=== PATIENT | male | born 1955 | race Caucasian/White ===

== ENCOUNTER 2017-07-31 10:40 | Inpatient (IN) | payer OTHER ==
[2017-07-31 11:44] VITALS: BMI 42.8
--- NOTE | 2017-07-31 12:49 | HP ---
CIWA Score - CIWA Score Nausea/Vomitin-Mild Nausea/No Vomiting Muscle Tremors: 4-Moderate,w/Arms Extend Anxiety: 4-Mod. Anxious/Guarded Agitation: 4-Moderately Restless Paroxysmal Sweats: 1-Minimal Palms Moist Orientation: 0-Oriented Tacttile Disturbances: 1-Very Mild Itch/Numbness Auditory Disturbances: 0-None Visual Disturbances: 0-None Headache: 0-None Present CIWA-Ar Total Score: 15 Admission ROS BHS - HPI Chief Complaint: alcohol withdrawal sx Allergies/Adverse Reactions: Allergies Allergy/AdvReac Type Severity Reaction Status Date / Time No Known Allergies Allergy Verified 07/31/17 12:45 History of Present Illness: 62 years old male with long history of alcohol nicotine dependence has chronic feet swell, ambulate with cane and wheelchair right foot fracture 2006 surgically repaired is admitted to detox Exam Limitations: No Limitations - Ebola screening Have you traveled outside of the country in the last 21 days: No Have you had contact with anyone from an Ebola affected area: No Have you been sick,other than usual withdrawal symptoms: No Do you have a fever: No - Review of Systems Constitutional: Changes in sleep, Weight Stable EENT: reports: No Symptoms Reported Respiratory: reports: SOB with Exertion Cardiac: reports: No Symptoms Reported GI: reports: Nausea, Poor Fluid Intake, Abdominal cramping : reports: No Symptoms Reported Musculoskeletal: reports: Joint Pain (right foot), Muscle Pain (legs), Muscle Weakness (right leg), Neck Pain Integumentary: reports: Change in Color (both legs vascular insufficient) Neuro: reports: Tremors Endocrine: reports: No Symptoms Reported Hematology: reports: No Symptoms Reported Psychiatric: reports: Judgement Intact, Orientated x3, Anxious Other Systems: Reviewed and Negative Patient History - Patient Medical History Hx Anemia: No Hx Asthma: No Hx Chronic Obstructive Pulmonary Disease (COPD): No Hx Cancer: No Hx Cardiac Disorders: No Hx Congestive Heart Failure: No Hx Hypertension: No Hx Hypercholesterolemia: No Hx Pacemaker: No HX Cerebrovascular Accident: No Hx Seizures: No Hx Dementia: No Hx Diabetes: No Hx Gastrointestinal Disorders: No Hx Liver Disease: No Hx Genitourinary Disorders: No Hx Sexually Transmitted Disorders: No Hx Renal Disease (ESRD): No Hx Thyroid Disease: No Hx Human Immunodeficiency Virus (HIV): No Hx Hepatitis C: No Hx Depression: Yes Hx Suicide Attempt: No Hx Bipolar Disorder: No Hx Schizophrenia: No - Patient Surgical History Past Surgical History: Yes Hx Orthopedic Surgery: Yes (2005 right foot) Anesthesia Reaction: No - PPD History Documented Results: Negative w/o proof Implanted On Prior [facility] Admission?: No PPD to be Administered?: Yes - Smoking Cessation Smoking history: Current every day smoker Have you smoked in the past 12 months: Yes Aproximately how many cigarettes per day: 5 Cigars Per Day: 0 Hx Chewing Tobacco Use: No Initiated information on smoking cessation: Yes 'Breaking Loose' booklet given: 07/31/17 - Substance & Tx. History Hx Alcohol Use: Yes Hx Substance Use: Yes Substance Use Type: Alcohol, Cocaine Hx Substance Use Treatment: Yes (2015 [place]) Family Disease History - Family Disease History Family Disease History: Other: Father (), Mother () Admission Physical Exam BHS - Vital Signs Vital Signs: Vital Signs - 24 hr 07/31/17 11:42 Temperature 97.8 F Pulse Rate 101 H Respiratory 20 Rate Blood Pressure 159/92 - Physical General Appearance: Yes: Appropriately Dressed, Mild Distress, Obese, Tremorous , Irritable, Sweating, Anxious HEENTM: Yes: Hearing grossly Normal, Normocephalic, Normal Voice Respiratory: Yes: Chest Non-Tender, Lungs Clear, Normal Breath Sounds, No Respiratory Distress, No Accessory Muscle Use Neck: Yes: Supple, Trachea in good position Breast: Yes: Breasts Symetrical, No Discharge Cardiology: Yes: Regular Rhythm, S1, S2, Tachycardia Abdominal: Yes: Normal Bowel Sounds, Non Tender, Flat Genitourinary: Yes: Within Normal Limits Back: Yes: Normal Inspection Musculoskeletal: Yes: Gait Steady (cane), Back pain, Joint swelling (feet), Muscle Pain, Muscle weakness (right leg) Extremities: Yes: Non-Tender, Tremors Neurological: Yes: Fully Oriented, Alert, Motor Strength 5/5 (cane), Normal Response, Depressed Affect Integumentary: Yes: Warm Lymphatic: Yes: Within Normal Limits - Diagnostic (1) Alcohol dependence with uncomplicated withdrawal Current Visit: Yes Status: Acute (2) Ambulates with cane Current Visit: Yes Status: Chronic (3) Status post right foot surgery Current Visit: Yes Status: Chronic (4) Nicotine dependence Current Visit: Yes Status: Acute Qualifiers: Nicotine product type: cigarettes Substance use status: in withdrawal Qualified Code(s): F17.213 - Nicotine dependence, cigarettes, with withdrawal (5) Bilateral swelling of feet Current Visit: Yes Status: Chronic Cleared for Admission [facility] - Detox or Rehab [facility] Level of Care: Medically Managed Detox Regimen/Protocol: Librium [facility] Breath Alcohol Content Breath Alcohol Content: 0.034 Urine Drug Screen - Results Drug Screen Negative: No Urine Drug Screen Results: IZA-Cocaine
[2017-07-31] MEDS ORDERED: NICOTINE POLACRILEX 2 MG GUM BC PRN (12:54)
[2017-07-31] MEDS ORDERED: P-EPHED 60MG/TRIPROLIDI 2.5MG TABLET PO PRN (12:54)
[2017-07-31] MEDS ORDERED: MENTHOL/PHENOL 1 EACH UD MM PRN (12:54)
[2017-07-31] MEDS ORDERED: MAG HYDROX/AL HYDROX/SIMETH 30 ML UNIT-DOSE CUP PO PRN (12:54)
[2017-07-31] MEDS ORDERED: IBUPROFEN 400 MG TABLET (FP) PO PRN (12:54)
[2017-07-31] MEDS ORDERED: LOPERAMIDE HCL 2 MG CAPSULE PO PRN (12:54)
[2017-07-31] MEDS ORDERED: MAGNESIUM HYDROX 2400MG/30ML ORAL SUSPENSION 30 ML CUP PO PRN (12:54)
[2017-07-31] MEDS ORDERED: MAGNESIUM CITRATE 300 ML BOTTLE PO PRN (12:54)
[2017-07-31] MEDS ORDERED: guaiFENesin/D-METHORPHAN HB 10 ML UNIT-DOSE CUPS PO PRN (12:54)
[2017-07-31] MEDS: chlordiazePOXIDE HCL 25 MG CAPSULE PO PRN ×2 (14:32→17:43)
[2017-07-31] MEDS: amLODIPine BESYLATE 5 MG TABLET (FP) PO SCH (14:32)
[2017-07-31] MEDS: NICOTINE 14 MG/24 HOURS TOPICAL PATCH TD SCH (14:32)
--- NOTE | 2017-07-31 17:40 | CONSULT ---
[facility] Psychiatric Consult - Data Date of interview: 07/31/17 Admission source: [facility] Identifying data: Patient is a 62 year old single male, without kids, unemployed (receiving SSI), and is currently homeless. This is patient's first admission to detox at [facility]. Patient admitted to for alcohol and cocaine dependence. Substance Abuse History: Following information confirmed with Mr. Moreno: Smoking Cessation. Smoking history: Current every day smoker. Have you smoked in the past 12 months: Yes. Aproximately how many cigarettes per day: 5. Cigars Per Day: 0. Hx Chewing Tobacco Use: No. Initiated information on smoking cessation: Yes. 'Breaking Loose' booklet given: 07/31/17. - Substance & Tx. History. Hx Alcohol Use: Yes. Hx Substance Use: Yes. Substance Use Type : Alcohol, Cocaine. Hx Substance Use Treatment: Yes (2015 [place]) Medical History: right foot surgery in 2015 Psychiatric History: Patient denies h/o psychiatric hospitalizations, outpatient care, and suicide attempt. Patient has been prescribed trazodone 150mg and zoloft by his PCP but states he has not medications in "several months." Pt. is nonadherent to medications. Pt. currently denies suicidal and homicidal ideation. Physical/Sexual Abuse/Trauma History: Denies. Mental Status Exam - Mental Status Exam Alert and Oriented to: Time, Place, Person Cognitive Function: Good Patient Appearance: Well Groomed Mood: Euthymic Affect: Mood Congruent Patient Behavior: Cooperative Speech Pattern: Appropriate Voice Loudness: Normal Thought Process: Intact, Goal Oriented Thought Disorder: Not Present Hallucinations: Denies Suicidal Ideation: Denies Homicidal Ideation: Denies Insight/Judgement: Poor Sleep: Poorly Appetite: Fair Muscle strength/Tone: Normal Gait/Station: Other (Patient uses a cane to ambulate.) Psychiatric Findings - Problem List ([place] 1, 2,3) (1) Insomnia Current Visit: Yes Status: Acute (2) Alcohol dependence with uncomplicated withdrawal Current Visit: Yes Status: Acute (3) Nicotine dependence Current Visit: Yes Status: Acute Qualifiers: Nicotine product type: cigarettes Substance use status: in withdrawal Qualified Code(s): F17.213 - Nicotine dependence, cigarettes, with withdrawal (4) Cocaine dependence Current Visit: Yes Status: Acute - Initial Treatment Plan Initial Treatment Plan: Psychoeducation provided. Detoxification in progress. Trazodone 50mg qhs ordered. Benefits and side effects discussed. Pt. made aware of the risk of priapism. Verbal consent given. Will continue to monitor.
[2017-07-31 19:17] LABS: URINE APPEARANCE TURBID; URINE BILIRUBIN NEGATIVE (<2.0 mg/dL); URINE COLOR YELLOW; URINE GLUCOSE (UA) NEGATIVE (NEGATIVE); URINE KETONE NEGATIVE (NEGATIVE); URINE LEUK ESTERASE NEGATIVE (NEGATIVE); URINE NITRITE NEGATIVE (NEGATIVE); URINE PROTEIN NEGATIVE (NEGATIVE); URINE UROBILINOGEN NEGATIVE mg/dL (0.2-1.0)
[2017-07-31 19:22] LABS: HEMOGLOBIN 13.1 GM/dL (11.7-16.9); MCH 28.7 pg (25.7-33.7); MCHC 33.5 g/dl (32.0-35.9); MEAN CELL VOLUME 85.8 fl (80-96); MEAN PLT VOLUME 9.8 fl (7.5-11.1); PLATELET COUNT 203 K/MM3 (134-434); RBC 4.55 M/mm3 (4.00-5.60); RDW 15.3 % (11.9-15.9); WHITE BLOOD COUNT 5.6 K/mm3 (4.0-10.0)
[2017-07-31 20:29] LABS: ALBUMIN 3.8 g/dl (3.4-5.0); ANION GAP 9 (8-16); BLOOD UREA NITROGEN 15 mg/dL (7-18); CALCIUM 8.7 mg/dL (8.5-10.1); CHLORIDE 108 mmol/L (98-107); CO2 23 mmol/L (21-32); GLUCOSE,RANDOM 99 mg/dL (74-106); SODIUM 140 mmol/L (136-145)
[2017-07-31 20:33] LABS: ALK PHOS 118 U/L (45-117); BILIRUBIN,TOTAL 0.4 mg/dL (0.2-1.0); CREATININE 0.8 mg/dL (0.7-1.3); SGOT/AST 52 U/L (15-37); SGPT/ALT 58 U/L (12-78); TOT PROT 7.4 g/dl (6.4-8.2)
[2017-07-31] MEDS ORDERED: MELATONIN 5 MG TABLETS PO PRN (22:00)
[2017-07-31] MEDS: chlordiazePOXIDE HCL 25 MG CAPSULE PO SCH (22:32)
[2017-07-31] MEDS: THIAMINE HCL 100 MG TABLET (FP) PO SCH (22:32)
[2017-07-31] MEDS: traZODone HCL 50 MG TABLET (FP) PO SCH (22:32)
[2017-08-01] MEDS: chlordiazePOXIDE HCL 25 MG CAPSULE PO SCH ×4 (05:52→23:18)
[2017-08-01] MEDS: ACETAMINOPHEN 325 MG TABLET (FP) PO PRN ×2 (05:54→23:21)
[2017-08-01] MEDS: PRENATAL VITAMINS W/ FOLIC ACID TABLET (FP) PO SCH (11:02)
[2017-08-01] MEDS: NICOTINE 14 MG/24 HOURS TOPICAL PATCH TD SCH (11:02)
--- NOTE | 2017-08-01 11:47 | EKG ---
Test Reason : Blood Pressure : / mmHG Vent. Rate : 100 BPM Atrial Rate : 100 BPM P-R Int : 144 ms QRS Dur : 092 ms QT Int : 344 ms P-R-T Axes : 060 033 046 degrees QTc Int : 443 ms NORMAL SINUS RHYTHM NORMAL ECG NO PREVIOUS ECGS AVAILABLE Confirmed by CLAUDY CASTILLO MD ([id number]) on 08/01/2017 11:46:43 AM Referred By: Confirmed By:CLAUDY CASTILLO MD
--- NOTE | 2017-08-01 11:53 | PN ---
S CIWA - CIWA Score Nausea/Vomitin-No Nausea/No Vomiting Muscle Tremors: 4-Moderate,w/Arms Extend Anxiety: 4-Mod. Anxious/Guarded Agitation: 4-Moderately Restless Paroxysmal Sweats: 1-Minimal Palms Moist Orientation: 0-Oriented Tacttile Disturbances: 3-Moderate Itch/Numb/Burn (BODY ACHES) Auditory Disturbances: 0-None Visual Disturbances: 0-None Headache: 0-None Present CIWA-Ar Total Score: 16 BHS Progress Note (SOAP) Subjective: ANXIETY,SWEATS/CHILLS,GENERALIZED BODY ACHES,INTERMITTENT SLEEP. Objective: 08/01/17 11:51 Vital Signs Temperature 96.1 F L 08/01/17 09:13 Pulse Rate 98 H 08/01/17 09:13 Respiratory Rate 18 08/01/17 09:13 Blood Pressure 101/62 08/01/17 09:13 O2 Sat by Pulse Oximetry (%) Laboratory Tests 07/31/17 07/31/17 07/31/17 13:00 13:00 13:00 WBC 5.6 RBC 4.55 Hgb 13.1 Hct 39.0 MCV 85.8 MCH 28.7 MCHC 33.5 RDW 15.3 Plt Count 203 MPV 9.8 Sodium 140 Potassium 4.0 Chloride 108 H Carbon Dioxide 23 Anion Gap 9 BUN 15 Creatinine 0.8 Creat Clearance w eGFR > 60 Random Glucose 99 Calcium 8.7 Total Bilirubin 0.4 AST 52 H ALT 58 Alkaline Phosphatase 118 H Total Protein 7.4 Albumin 3.8 Urine Color Urine Appearance Urine pH Ur Specific [place] Urine Protein Urine Glucose (UA) Urine Ketones Urine Blood Urine Nitrite Urine Bilirubin Urine Urobilinogen Ur Leukocyte Esterase RPR Titer Hep C Ab Diagnostic <0.1 Liver Fibrosis Interp 07/31/17 07/31/17 13:00 14:00 WBC RBC Hgb Hct MCV MCH MCHC RDW Plt Count MPV Sodium Potassium Chloride Carbon Dioxide Anion Gap BUN Creatinine Creat Clearance w eGFR Random Glucose Calcium Total Bilirubin AST ALT Alkaline Phosphatase Total Protein Albumin Urine Color Yellow Urine Appearance Turbid Urine pH 5.0 Ur Specific [place] 1.020 Urine Protein Negative Urine Glucose (UA) Negative Urine Ketones Negative Urine Blood Negative Urine Nitrite Negative Urine Bilirubin Negative Urine Urobilinogen Negative Ur Leukocyte Esterase Negative RPR Titer Nonreactive Hep C Ab Diagnostic Liver Fibrosis Interp Assessment: 08/01/17 11:52 WITHDRAWAL SX Plan: CONTINUE DETOX MOTRIN PRN DIRECTED.
[2017-08-01] MEDS: amLODIPine BESYLATE 5 MG TABLET (FP) PO SCH (14:47)
[2017-08-01] MEDS: traZODone HCL 50 MG TABLET (FP) PO SCH (23:18)
[2017-08-01] MEDS: THIAMINE HCL 100 MG TABLET (FP) PO SCH (23:18)
[2017-08-02] MEDS: chlordiazePOXIDE HCL 25 MG CAPSULE PO SCH ×3 (05:57→16:53)
[2017-08-02] MEDS: amLODIPine BESYLATE 5 MG TABLET (FP) PO SCH (10:47)
[2017-08-02] MEDS: NICOTINE 14 MG/24 HOURS TOPICAL PATCH TD SCH (10:48)
[2017-08-02] MEDS: PRENATAL VITAMINS W/ FOLIC ACID TABLET (FP) PO SCH (10:48)
--- NOTE | 2017-08-02 12:38 | PN ---
S CIWA - CIWA Score Nausea/Vomitin-No Nausea/No Vomiting Muscle Tremors: 4-Moderate,w/Arms Extend Anxiety: 4-Mod. Anxious/Guarded Agitation: 4-Moderately Restless Paroxysmal Sweats: 1-Minimal Palms Moist Orientation: 0-Oriented Tacttile Disturbances: 3-Moderate Itch/Numb/Burn Auditory Disturbances: 0-None Visual Disturbances: 0-None Headache: 0-None Present CIWA-Ar Total Score: 16 BHS Progress Note (SOAP) Subjective: ANXIETY,IRRITABILITY,FEET PAIN,BACK ACHE, SWEATS. Objective: 08/02/17 12:37 Vital Signs 08/02/17 08/02/17 06:22 10:00 Temperature 95.9 F L 96.0 F L Pulse Rate 76 94 H Respiratory 18 20 Rate Blood Pressure 130/79 135/80 Laboratory Tests 07/31/17 07/31/17 07/31/17 13:00 13:00 13:00 WBC 5.6 RBC 4.55 Hgb 13.1 Hct 39.0 MCV 85.8 MCH 28.7 MCHC 33.5 RDW 15.3 Plt Count 203 MPV 9.8 Sodium 140 Potassium 4.0 Chloride 108 H Carbon Dioxide 23 Anion Gap 9 BUN 15 Creatinine 0.8 Creat Clearance w eGFR > 60 Random Glucose 99 Calcium 8.7 Total Bilirubin 0.4 AST 52 H ALT 58 Alkaline Phosphatase 118 H Total Protein 7.4 Albumin 3.8 Urine Color Urine Appearance Urine pH Ur Specific [place] Urine Protein Urine Glucose (UA) Urine Ketones Urine Blood Urine Nitrite Urine Bilirubin Urine Urobilinogen Ur Leukocyte Esterase RPR Titer Hep C Ab Diagnostic <0.1 Liver Fibrosis Interp 07/31/17 07/31/17 13:00 14:00 WBC RBC Hgb Hct MCV MCH MCHC RDW Plt Count MPV Sodium Potassium Chloride Carbon Dioxide Anion Gap BUN Creatinine Creat Clearance w eGFR Random Glucose Calcium Total Bilirubin AST ALT Alkaline Phosphatase Total Protein Albumin Urine Color Yellow Urine Appearance Turbid Urine pH 5.0 Ur Specific [place] 1.020 Urine Protein Negative Urine Glucose (UA) Negative Urine Ketones Negative Urine Blood Negative Urine Nitrite Negative Urine Bilirubin Negative Urine Urobilinogen Negative Ur Leukocyte Esterase Negative RPR Titer Nonreactive Hep C Ab Diagnostic Liver Fibrosis Interp Assessment: 08/02/17 12:38 WITHDRAWAL SX Plan: CONTINUE DETOX INCREASE MOTRIN 600 MG PO Q6H PRN FOR PAIN
[2017-08-02] MEDS: traZODone HCL 50 MG TABLET (FP) PO SCH (22:44)
[2017-08-02] MEDS: chlordiazePOXIDE 5 MG CAPSULE PO SCH (22:44)
[2017-08-02] MEDS: THIAMINE HCL 100 MG TABLET (FP) PO SCH (22:45)
[2017-08-03] MEDS: chlordiazePOXIDE 5 MG CAPSULE PO SCH ×3 (05:39→18:30)
[2017-08-03] MEDS: IBUPROFEN 600 MG TABLET (FP) PO PRN ×2 (10:36→22:47)
[2017-08-03] MEDS: amLODIPine BESYLATE 5 MG TABLET (FP) PO SCH (10:37)
[2017-08-03] MEDS: PRENATAL VITAMINS W/ FOLIC ACID TABLET (FP) PO SCH (10:37)
[2017-08-03] MEDS: NICOTINE 14 MG/24 HOURS TOPICAL PATCH TD SCH (10:57)
--- NOTE | 2017-08-03 17:25 | PN ---
BHS Progress Note (SOAP) Subjective: Body Aches, Anxious, Fatigue. Objective: PATIENT A & O X 2 (UNCERTAIN ABOUT CURRENT DAY/DATE). 08/03/17 17:20 Vital Signs Temperature 96.2 F L 08/03/17 15:32 Pulse Rate 92 H 08/03/17 15:32 Respiratory Rate 20 08/03/17 15:32 Blood Pressure 116/74 08/03/17 15:32 O2 Sat by Pulse Oximetry (%) Laboratory Tests 07/31/17 07/31/17 07/31/17 13:00 13:00 13:00 WBC 5.6 RBC 4.55 Hgb 13.1 Hct 39.0 MCV 85.8 MCH 28.7 MCHC 33.5 RDW 15.3 Plt Count 203 MPV 9.8 Sodium 140 Potassium 4.0 Chloride 108 H Carbon Dioxide 23 Anion Gap 9 BUN 15 Creatinine 0.8 Creat Clearance w eGFR > 60 Random Glucose 99 Calcium 8.7 Total Bilirubin 0.4 AST 52 H ALT 58 Alkaline Phosphatase 118 H Total Protein 7.4 Albumin 3.8 Urine Color Urine Appearance Urine pH Ur Specific [place] Urine Protein Urine Glucose (UA) Urine Ketones Urine Blood Urine Nitrite Urine Bilirubin Urine Urobilinogen Ur Leukocyte Esterase RPR Titer Hep C Ab Diagnostic <0.1 Liver Fibrosis Interp 07/31/17 07/31/17 13:00 14:00 WBC RBC Hgb Hct MCV MCH MCHC RDW Plt Count MPV Sodium Potassium Chloride Carbon Dioxide Anion Gap BUN Creatinine Creat Clearance w eGFR Random Glucose Calcium Total Bilirubin AST ALT Alkaline Phosphatase Total Protein Albumin Urine Color Yellow Urine Appearance Turbid Urine pH 5.0 Ur Specific [place] 1.020 Urine Protein Negative Urine Glucose (UA) Negative Urine Ketones Negative Urine Blood Negative Urine Nitrite Negative Urine Bilirubin Negative Urine Urobilinogen Negative Ur Leukocyte Esterase Negative RPR Titer Nonreactive Hep C Ab Diagnostic Liver Fibrosis Interp LABS NOTED. Assessment: 08/03/17 17:21 WITHDRAWAL SYMPTOMS. Plan: CONTINUE DETOX. PATIENT ORIGINALLY SCHEDULED FOR DISCHARGE TOMORROW. PATIENT REPORTS THAT HE DOES NOT CURRENTLY HAVE A DISCHARGE CARE PLAN IN PLACE. PATIENT ALSO DENIES HAVING ANY FAMILY MEMBERS OR FRIENDS WHOM HE CAN GO TO STAY WITH AFTER DISCHARGE. DUE TO PRESENCE OF LINGERING DETOX WITHDRAWAL SYMPTOMS AND DUE TO PATIENT'S CONSIDERABLE DIFFICULTY IN AMBULATION, PATIENT PERMITTED TO REMAIN ON DETOX UNIT UNTIL 08/05/2017, AT WHICH TIME CASE MANAGEMENT STAFF WILL MEET WITH PATIENT TO HELP HIM DEVISE A SUITABLE DISCHARGE AFTERCARE PLAN.
[2017-08-03] MEDS: traZODone HCL 50 MG TABLET (FP) PO SCH (22:47)
[2017-08-03] MEDS: chlordiazePOXIDE HCL 10 MG CAPSULE PO SCH (22:47)
[2017-08-03] MEDS: THIAMINE HCL 100 MG TABLET (FP) PO SCH (22:47)
--- NOTE | 2017-08-04 01:37 | PN ---
[facility] Progress Note Note: I was called by Ms. Sulma Alexander to evaluate patient who fell from his bed. Patient states that he rolled over while asleep and slipped to the floor. patient was examined in bed. He denies pain or discomfort. Rates pain at 0/10. No injury, bruise or redness noted or reported at this tiome. Fall was unwitnessed. Fall protocol #1 initiated. Patient refused to go to the ER , stating that he is okay and did hit his head on any object. Patient signed the refusal of treatment form. Vital Signs Temperature 97.2 F L 08/03/17 21:56 Pulse Rate 85 08/03/17 21:56 Respiratory Rate 18 08/04/17 00:30 Blood Pressure 119/73 08/03/17 21:56 O2 Sat by Pulse Oximetry (%)
[2017-08-04] MEDS: chlordiazePOXIDE HCL 10 MG CAPSULE PO SCH ×3 (05:49→17:31)
[2017-08-04] MEDS: IBUPROFEN 600 MG TABLET (FP) PO PRN (10:42)
[2017-08-04] MEDS: NICOTINE 14 MG/24 HOURS TOPICAL PATCH TD SCH (10:43)
[2017-08-04] MEDS: PRENATAL VITAMINS W/ FOLIC ACID TABLET (FP) PO SCH (10:43)
[2017-08-04] MEDS: amLODIPine BESYLATE 5 MG TABLET (FP) PO SCH (10:43)
--- NOTE | 2017-08-04 14:40 | PN ---
BHS Progress Note (SOAP) Subjective: PT SITTING ON BED AND EATING BREAKFAST WHEN SEEN. ALERT O X 3. DENIES ANY DISCOMFORT. PT STILL HAS LIMITED MOBILITY. Objective: 08/04/17 14:38 Vital Signs 08/04/17 08/04/17 08/04/17 07:00 09:00 10:41 Temperature 96.6 F L 98.1 F 96.2 F L Pulse Rate 84 71 84 Respiratory 20 18 20 Rate Blood Pressure 126/73 113/71 113/80 08/04/17 11:00 Temperature 97.1 F L Pulse Rate 78 Respiratory 18 Rate Blood Pressure 112/76 Laboratory Tests 07/31/17 07/31/17 07/31/17 13:00 13:00 13:00 WBC 5.6 RBC 4.55 Hgb 13.1 Hct 39.0 MCV 85.8 MCH 28.7 MCHC 33.5 RDW 15.3 Plt Count 203 MPV 9.8 Sodium 140 Potassium 4.0 Chloride 108 H Carbon Dioxide 23 Anion Gap 9 BUN 15 Creatinine 0.8 Creat Clearance w eGFR > 60 Random Glucose 99 Calcium 8.7 Total Bilirubin 0.4 AST 52 H ALT 58 Alkaline Phosphatase 118 H Total Protein 7.4 Albumin 3.8 Urine Color Urine Appearance Urine pH Ur Specific [place] Urine Protein Urine Glucose (UA) Urine Ketones Urine Blood Urine Nitrite Urine Bilirubin Urine Urobilinogen Ur Leukocyte Esterase RPR Titer Hep C Ab Diagnostic <0.1 Liver Fibrosis Interp 07/31/17 07/31/17 13:00 14:00 WBC RBC Hgb Hct MCV MCH MCHC RDW Plt Count MPV Sodium Potassium Chloride Carbon Dioxide Anion Gap BUN Creatinine Creat Clearance w eGFR Random Glucose Calcium Total Bilirubin AST ALT Alkaline Phosphatase Total Protein Albumin Urine Color Yellow Urine Appearance Turbid Urine pH 5.0 Ur Specific [place] 1.020 Urine Protein Negative Urine Glucose (UA) Negative Urine Ketones Negative Urine Blood Negative Urine Nitrite Negative Urine Bilirubin Negative Urine Urobilinogen Negative Ur Leukocyte Esterase Negative RPR Titer Nonreactive Hep C Ab Diagnostic Liver Fibrosis Interp Assessment: 08/04/17 14:39 WITHDRAWAL SX Plan: HOLD PATIENT TILL TOMORROW. F/U WITH PHYSICAL THERAPIST AIDE RE:AFTERCARE
[2017-08-04] MEDS: traZODone HCL 50 MG TABLET (FP) PO SCH (23:01)
[2017-08-04] MEDS: THIAMINE HCL 100 MG TABLET (FP) PO SCH (23:01)
[2017-08-05] MEDS: amLODIPine BESYLATE 5 MG TABLET (FP) PO SCH (11:00)
[2017-08-05] MEDS: PRENATAL VITAMINS W/ FOLIC ACID TABLET (FP) PO SCH (11:00)
[2017-08-05] MEDS: NICOTINE 14 MG/24 HOURS TOPICAL PATCH TD SCH (11:00)
[2017-08-05 14:32] VITALS: BP 121/73; PULSE 97; TEMP 98.8
--- NOTE | 2017-08-05 16:06 | PN ---
S Progress Note (SOAP) Subjective: Difficulty ambulating Objective: 08/05/17 16:04 A & O x 3 Ambulates with w/chair/cane on unit Vital Signs Period Temp Pulse Resp BP Sys/[place]ley Pulse Ox Last 24 Hr 96.2 F-98.8 F 80-97 16-20 98-121/55-73 Assessment: 08/05/17 16:05 Detox successfully completed Plan: For discharge
--- NOTE | 2017-08-05 16:10 | DS ---
[facility] Detox Discharge Summary Admission Date: 07/31/17 Discharge Date: 08/05/17 - History Additional Comments: Pt still c/o limited mobility s/p knee surgery 2013 Ambulates with a cane Per counselor pt to be picked up by [id number] transport to the [facility] Pt verbalized agreement with plans, will do aftercare at AA meetings. Pertinent Past History: S/p R foot surgery - Physical Exam Results Vital Signs: Vital Signs Temperature 98.8 F 08/05/17 14:30 Pulse Rate 97 H 08/05/17 14:30 Respiratory Rate 16 08/05/17 14:30 Blood Pressure 121/73 08/05/17 14:30 O2 Sat by Pulse Oximetry (%) Pertinent Admission Physical Exam Findings: withdrawal sx - Treatment Hospital Course: Detox Protocol Followed, Detoxed Safely, Responded well, Discharged Condition Good - Medication Discharge Medications: Ambulatory Orders NK [No Known Home Medication] 07/31/17 - Diagnosis (1) Alcohol dependence with uncomplicated withdrawal Current Visit: Yes Status: Acute (2) Cocaine dependence Current Visit: Yes Status: Acute Qualifiers: Substance use status: uncomplicated Qualified Code(s): F14.20 - Cocaine dependence, uncomplicated (3) Nicotine dependence Current Visit: Yes Status: Acute Qualifiers: Nicotine product type: cigarettes Substance use status: in withdrawal Qualified Code(s): F17.213 - Nicotine dependence, cigarettes, with withdrawal (4) Ambulates with cane Current Visit: Yes Status: Chronic (5) Bilateral swelling of feet Current Visit: Yes Status: Chronic (6) Obesities, morbid Current Visit: Yes Status: Chronic (7) Status post right foot surgery Current Visit: Yes Status: Chronic - AMA Did Patient Leave Against Medical Advice: No
== END 2017-08-05 16:30 | disposition home or self-care (01) | DRG 897 ==
LOC: YASAS 10:40 → Y3N 13:23
PROVIDERS: ADMIT Internal Medicine; ATTEND Internal Medicine
PROC: HZ2ZZZZ Detoxification Services for Substance Abuse Treatment (ICD-10-PCS; principal; 2017-07-31)
DX: F10.230 Alcohol dependence with withdrawal, uncomplicated (principal); F14.20 Cocaine dependence, uncomplicated; Z68.41 Body mass index [BMI] 40.0-44.9, adult; F17.213 Nicotine dependence, cigarettes, with withdrawal; G47.00 Insomnia, unspecified; E66.01 Morbid (severe) obesity due to excess calories; R26.2 Difficulty in walking, not elsewhere classified; R26.89 Other abnormalities of gait and mobility; Z98.890 Other specified postprocedural states; Z99.3 Dependence on wheelchair; M79.89 Other specified soft tissue disorders
CPT/HCPCS: 36415; 80053; 81003; 85027; 86593; 93005; 93010